=== PATIENT | female | born 2000 | race Hispanic/Latino ===

== ENCOUNTER 2021-09-19 20:19 | Emergency (ER) | payer OTHER ==
[2021-09-19] MEDS ORDERED: Acetaminophen 500 MG TAB ONE (21:51)
[2021-09-19] MEDS ORDERED: Dexamethasone 10 MG/ML VIAL ONE (21:51)
[2021-09-20 20:19] LABS: SARS-CoV-2 PCR by NAA DETECTED (NotDetected)
== END 2021-09-19 22:31 | disposition home or self-care (01) ==
LOC: CSHERS 20:19
DX: U07.1 COVID-19 (principal)
CPT/HCPCS: 87081; 87430; 99283; J1100; U0003; U0005

== ENCOUNTER 2022-08-25 10:44 | Emergency (ER) | payer OTHER | END 2022-08-25 12:16 | disposition home or self-care (01) | LOC: CSHERS 10:44 | DX: J02.9 Acute pharyngitis, unspecified (principal); R05.9 Cough, unspecified | CPT/HCPCS: 99283 ==